=== PATIENT | male | born 1955 | race Caucasian/White ===

== ENCOUNTER 2018-10-25 07:01 | Day surgery (SDC) | payer OTHER ==
[~2018-10-25 07:01] MED LIST: PROPOFOL 200 MG INJ
[2018-10-25] MEDS ORDERED: LIDOCAINE 100 MG SYRINGE (08:55)
[2018-10-25] MEDS ORDERED: PROPOFOL 20 ML (08:55)
[2018-10-25] MEDS ORDERED: LABETALOL HCL 20MG INJ IV (09:30)
[2018-10-25] MEDS ORDERED: METOCLOPRAMIDE 10 MG INJ IV (09:30)
[2018-10-25] MEDS ORDERED: hydrALAzine 20 MG INJ IV (09:30)
[2018-10-25] MEDS ORDERED: ONDANSETRON 4 MG INJ IV (09:30)
== END 2018-10-25 10:42 | disposition home or self-care (01) ==
LOC: GIL 07:01
DX: R19.4 Change in bowel habit (principal); K64.8 Other hemorrhoids; K44.9 Diaphragmatic hernia without obstruction or gangrene; K22.10 Ulcer of esophagus without bleeding; E11.9 Type 2 diabetes mellitus without complications
CPT/HCPCS: 43239; 82962; 88305